=== PATIENT | female | born 1965 | race Caucasian/White ===

== ENCOUNTER 2017-10-07 10:07 | Inpatient (IN) | payer OTHER ==
[2017-10-07] MEDS ORDERED: Dexamethasone IV* 4 MG/ML 1 ML (4 MG) ONE (10:21)
[2017-10-07] MEDS ORDERED: Clindamycin 900 MG IVPREMIX(* 900 MG/50 ML SDV IV ONE (10:22)
[2017-10-07] MEDS ORDERED: Scopolamine 1.5 mg* PATCH ONE (10:22)
[2017-10-07] MEDS ORDERED: Bupivacaine 0.25% SDV* 30 ML ONE (10:47)
[2017-10-07] MEDS ORDERED: Midazolam* 1 MG/ML 5 ML VIAL (5 MG) ONE (10:47)
[2017-10-07] MEDS ORDERED: Methylene Blue 0.5 %* 50 MG/10 ML AMP IV ONE (10:52)
[2017-10-07] MEDS ORDERED: EPINEPHRINE 1 MG/ML 1 ML VIAL ONE (10:52)
[2017-10-07] MEDS ORDERED: Lidocaine 2% PF * 5 ML VIAL ONE ×2 (10:52→12:11)
[2017-10-07] MEDS ORDERED: Sodium Bicarbonate 8.4% SYR* 10 ML SYRINGE ONE (10:53)
[2017-10-07] MEDS ORDERED: Lidocaine 2% PF* 10 ML AMP ONE (10:53)
[2017-10-07] MEDS ORDERED: Ondansetron SYRINGE* 4 MG/2 ML SYRINGE (from 40mg/20ml vial) IV ONE (11:00)
[2017-10-07] MEDS: Buffered Lidocaine 0.9% SYRIN* 5 ML/SYR SYRINGE INTRADERM ONE ×2 (11:01→22:46)
[2017-10-07] MEDS ORDERED: Cisatracurium* 2 MG/ML MDV 5 ML ONE (11:57)
[2017-10-07] MEDS ORDERED: Propofol* 10 MG/ML 20 ML BTL IV PUSH ONE (12:10)
[2017-10-07] MEDS ORDERED: Dexmedetomidine* 200 MCG/2 ML 2 ML VIAL ONE (12:10)
[2017-10-07] MEDS ORDERED: fentaNYL* 50 MCG/ML 2 ML VIAL (100 MCG VIAL) ONE ×3 (12:11→16:38)
[2017-10-07] MEDS ORDERED: Hetastarch 6% in NS* 500 ML IV ONE (14:32)
[2017-10-07] MEDS ORDERED: Acetaminophen TAB* 325 MG PO PRN ×3 (16:04→16:37)
[2017-10-07] MEDS ORDERED: Ondansetron ODT TAB* 4 MG PO PRN (16:04)
[2017-10-07] MEDS ORDERED: Naloxone* 0.4 MG/ML 1 ML VIAL IV PRN (16:04)
[2017-10-07] MEDS ORDERED: PROCHLORPERAZINE INJ 5 MG/ML 2 ML VIAL IV PRN (16:04)
[2017-10-07] MEDS ORDERED: DiMENhydriNATE IV* 50 MG/ML VIAL IV PUSH PRN (16:04)
[2017-10-07] MEDS ORDERED: Magnesium Hydroxide LIQ* 30 ML UDC PO PRN (16:37)
[2017-10-07] MEDS ORDERED: Ondansetron INJ* 2 MG/ML VIAL IV PRN ×2 (16:37)
[2017-10-07] MEDS ORDERED: diPHENhydraMINE PO* 25 MG PO PRN ×2 (16:37)
[2017-10-07] MEDS ORDERED: Al Hydrox/Mg Hydrox/Simet LIQ* 30 ML UDC PO PRN (16:37)
[2017-10-07] MEDS: fentaNYL* 50 MCG/ML 2 ML VIAL (100 MCG VIAL) IV PRN ×2 (16:39→16:44)
[2017-10-07] MEDS ORDERED: HYDROmorphone INJ* 2 MG/ML CARPUJECT SYRINGE ONE ×2 (17:08→21:28)
[2017-10-07] MEDS: HYDROmorphone INJ* 1 MG/ML CARPUJECT SYRINGE IV PRN ×5 (17:14→17:49)
[2017-10-07] MEDS: Artificial Tear OPHTH.OINT* 3.5 GM RIGHT EYE PRN ×2 (18:25→23:14)
[2017-10-07] MEDS: HYDROmorphone INJ* 2 MG/ML CARPUJECT SYRINGE IV PRN ×2 (20:00→21:30)
[2017-10-07] MEDS ORDERED: Artificial Tears* 15 ML BTL RIGHT EYE PRN (21:49)
[2017-10-07] MEDS: Docusate CAP* 100 MG PO SCH (22:12)
[2017-10-07] MEDS: NS 0.9% 1000 ML* 1,000 ML IV SCH (22:27)
[2017-10-08 00:10] LABS: ABS Basophils 0 10^3/ul (0-0.2); ABS Eosinophils 0 10^3/ul (0-0.6); ABS Lymphocytes 0.7 10^3/ul (1.0-4.8); ABS Monocytes 0.6 10^3/ul (0-0.8); ABS Neutrophils 11.5 10^3/ul (1.5-7.7); ABS Nucleated RBC 0 10^3/ul; Eosinophil % 0 % (0-6); Hematocrit 30 % (35-47); Hemoglobin 9.5 g/dl (12.0-16.0); Lymphocyte % 5.2 % (25-47); Mean Corpuscular HGB Conc 32 g/dl (31-36); Mean Corpuscular Hemoglobin 25 pg (27-31); Mean Corpuscular Volume 78 fL (80-97); Mean Platelet Volume 8.4 um3 (7.4-10.4); Nucleated Red Blood Cells % 0; Platelet Count 210 10^3/ul (150-450); Red Blood Count 3.81 10^6/ul (4.0-5.4); Red Cell Distribution Width 23 % (10.5-15); White Blood Count 12.8 10^3/ul (3.5-10.8)
[2017-10-08] MEDS ORDERED: NS 0.9% 500 ML* 500 ML IV ONE ×4 (01:00→10:00)
[2017-10-08] MEDS ORDERED: NS 0.9% 1000 ML* 1,000 ML IV SCH (02:15)
[2017-10-08] MEDS: HYDROmorphone INJ* 2 MG/ML CARPUJECT SYRINGE IV PRN ×6 (02:40→22:38)
--- NOTE | 2017-10-08 03:43 | CONSULT ---
Consult Consult: PCP: Plastic Surgeon: Nolberto Odonnell MD Date/Time: 10/08/2017 Reason for Consult: post-op hypotension HPI: Mrs Ospnia is a 51YO female HX morbid obesity s/p Ruen-Y 2011 w/ good result initially weighing ~350# and now down to ~160#. She underwent a panniculectomy earlier today with a post-operative blood pressure drop of a systolic into the 70s sluggishly responsive to IVFs. She reports what would be considered normal post-operative pain, denies chest pain, SOB, palpitations, N/V , or other issues. Intra-operative blood loss was estimated verbally as 200cc and combined BELLA output is recorded at 600cc and appears to be >50% blood based on lack of translucence & viscosity. She does report light-headedness. A CT abd/pel WO was obtained revealing a large abdominal hematoma extending into B flanks. Dr Odonnell was apprised of the finding and is planning a return to the OR tonight for hemostasis & evacuation. PMedHx HX morbid obesity s/p Ruen-Y 2011 w/ good result HX DM2 in remission since Ruen-Y HX HTN in remission since Ruen-Y esophageal stricture complicating Ruen-Y Ambulatory Orders Cyanocobalamin (Vitamin B-12) [Vitamin B-12] 1,000 mcg SL QAM 09/30/17 Ferrous Sulfate [Iron] 325 mg PO TID 09/30/17 Multivit with Calcium,Iron,Min [Multiple Vitamins For Women] 1 each PO QAM 09/30 Allergies Adhesive Tape Allergy (Severe, Verified 09/30/17 13:08) Hives morphine Allergy (Severe, Verified 10/08/17 01:42) Nausea And Vomiting Penicillins Allergy (Severe, Verified 10/08/17 01:42) Hives/Diff.Breathing/Itching PSurgHx panniculectomy POD zero Ruen-Y cholecystectomy section SocHx: former smoker quit ~25 years ago, ~2 alcoholic drinks weekly, denies recreational drugs; lives with her fiance; 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; full code status FamHx: denies ROS: as above, otherwise reviewed and all were negative vitals: Vital Signs Temp 36.4 C 10/07/17 23:03 Pulse 61 10/08/17 02:00 Resp 26 10/08/17 03:20 BP 85/51 10/08/17 02:00 Pulse Ox 100 10/08/17 02:00 Intake & Output 10/07/17 10/07/17 10/08/17 11:59 23:59 11:59 Intake Total 2500 1229 Output Total 1163 110 Balance 1337 1119 Weight 77.564 kg Intake: IV Fluids 2500 1229 0.9 % NS 1000 Hetastarch 500 LR 1000 NS (0.9%) 1229 Output: BELLA #1 268 45 BELLA #2 295 65 Urine 600 Constitutional: NAD, normally developed, overweight white female HEENM: atraumatic; sclera/conjunctiva: anicteric/clear; hearing: clinically intact; oropharynx: clear, mucosa tacky Neck: soft tissue: non-tender; thyroid: normal Pulmonary: clear to auscultation bilaterally, good aeration, no accessory muscle use CV: RR/RR, normal S1S2, no carotid bruit, no jugular venous distention, 2+ B DP/ PT, no edema Abdominal: soft, non-distended, moderate diffuse tenderness as expected post-op of her surgery, wound vac in place, no flocculence noted, no bleeding from the incision site, BLQ BELLA draining viscous opaque red (one contains a small clot), no rebound/guarding/rigidity, normoactive bowel sounds, no hepatosplenomegaly or masses, no costovertebral angle tenderness Musculoskeletal: general: grossly intact, non-tender Integumental: abdominal incision as above Psychiatric orientation: AA&O to PPS affect: calm mood: cooperative/pleasant eye contact: fair content: reliable responses: timely insight: good Testing: Laboratory Results - last 24 hr 10/07/17 10/07/17 10/08/17 23:45 23:45 03:30 WBC 12.8 H 8.2 RBC 3.81 L 2.48 L Hgb 9.5 L 6.3 L* Hct 30 L 20 L MCV 78 L 80 MCH 25 L 25 L MCHC 32 32 RDW 23 H 23 H Plt Count 210 135 L MPV 8.4 8.6 Neut % (Auto) 89.8 H 87.0 H Lymph % (Auto) 5.2 L 6.2 L Walker % (Auto) 4.9 6.7 Eos % (Auto) 0 0 Baso % (Auto) 0.1 0.1 Absolute Neuts (auto) 11.5 H 7.1 Absolute Lymphs (auto) 0.7 L 0.5 L Absolute Monos (auto) 0.6 0.5 Absolute Eos (auto) 0 0 Absolute Basos (auto) 0 0 Absolute Nucleated RBC 0 0 Nucleated RBC % 0 0.1 Anisocytosis 2+ Blood Type A Positive Antibody Screen Negative Crossmatch See Detail CT abd/pel WO, personally reviewed: IMPRESSION: 12.3cm subcutaneous anterior abdominal wall hematoma and 12.0cm left flank subcutaneous hematoma. Acute extravasation is difficult to exclude without contrast. Impression: 51F POD zero panniculectomy complicated by post-operative subcutaneous hemorrhage, blood loss anemia DIAGNOSIS & PLAN Primary POD zero panniculectomy : pain control : management per Nolberto Odonnell MD plastic surgery post-operative hemorrhage w/ acute blood loss anemia : ICU transfer : type & screen : transfuse 2 units pRBCs : trend H&H : thank you for this interesting consultation, we will continue to follow & assist Secondary HX DM2 & HTN : in remission since Ruen-Y Critical Care Time: 110minutes; with >50% spent face to face interviewing, evaluating, informing, & discussing treatment options
[2017-10-08 03:53] LABS: Hematocrit 20 % (35-47); Hemoglobin 6.3 g/dl (12.0-16.0); Mean Corpuscular HGB Conc 32 g/dl (31-36); Mean Corpuscular Hemoglobin 25 pg (27-31); Mean Corpuscular Volume 80 fL (80-97); Mean Platelet Volume 8.6 um3 (7.4-10.4); Platelet Count 135 10^3/ul (150-450); Red Blood Count 2.48 10^6/ul (4.0-5.4); Red Cell Distribution Width 23 % (10.5-15); White Blood Count 8.2 10^3/ul (3.5-10.8)
[2017-10-08] MEDS ORDERED: Etomidate* 2 MG/ML 10 ML VIAL ONE (04:24)
[2017-10-08] MEDS ORDERED: Atracurium* 10 MG/ML 10 ML VIAL ONE (04:24)
[2017-10-08] MEDS ORDERED: Midazolam* 1 MG/ML 2 ML VIAL (2 MG) ONE (04:25)
[2017-10-08 04:30] LABS: ABS Basophils 0 10^3/ul (0-0.2); ABS Eosinophils 0 10^3/ul (0-0.6); ABS Lymphocytes 0.5 10^3/ul (1.0-4.8); ABS Monocytes 0.5 10^3/ul (0-0.8); ABS Neutrophils 7.1 10^3/ul (1.5-7.7); ABS Nucleated RBC 0 10^3/ul; Eosinophil % 0 % (0-6); Lymphocyte % 6.2 % (25-47); Nucleated Red Blood Cells % 0.1
[2017-10-08] MEDS ORDERED: fentaNYL* 50 MCG/ML 2 ML VIAL (100 MCG VIAL) ONE ×2 (04:52→07:11)
[2017-10-08] MEDS ORDERED: Clindamycin 900 MG IVPREMIX(* 900 MG/50 ML SDV IV ONE (05:14)
[2017-10-08] MEDS ORDERED: Phenylephrine INJ* 10 MG/ML 1 ML VIAL (10 MG) ONE (05:37)
[2017-10-08] MEDS ORDERED: Succinylcholine* 20 MG/ML 10 ML VIAL ONE (06:13)
[2017-10-08] MEDS ORDERED: Naloxone* 0.4 MG/ML 1 ML VIAL IV PRN (06:52)
[2017-10-08] MEDS ORDERED: Ondansetron INJ* 2 MG/ML VIAL IV PRN (06:52)
[2017-10-08] MEDS ORDERED: DiMENhydriNATE IV* 50 MG/ML VIAL IV PUSH PRN (06:52)
[2017-10-08] MEDS ORDERED: Ondansetron ODT TAB* 4 MG PO PRN (06:52)
[2017-10-08] MEDS ORDERED: HYDROmorphone INJ* 2 MG/ML CARPUJECT SYRINGE ONE (07:11)
[2017-10-08] MEDS: fentaNYL* 50 MCG/ML 2 ML VIAL (100 MCG VIAL) IV PRN ×3 (07:12→07:35)
[2017-10-08] MEDS: HYDROmorphone INJ* 1 MG/ML CARPUJECT SYRINGE IV PRN ×3 (07:13→07:36)
[2017-10-08 07:55] LABS: Hematocrit 30 % (35-47); Hemoglobin 9.6 g/dl (12.0-16.0)
[2017-10-08] MEDS: NS 0.9% 1000 ML* 1,000 ML IV SCH (08:05)
--- NOTE | 2017-10-08 08:24 | RAD ---
Indication: Postoperative hypotension CT of the abdomen and pelvis was performed without oral or IV contrast administration. Coronal and sagittal reconstructed images were obtained. Lung bases demonstrate bibasilar atelectasis. Heart demonstrates no pericardial effusion. Liver is normal in size. No focal lesions or intrahepatic ductal dilatation is noted. Spleen is normal in size. Patient is status post bariatric surgery. Pancreas demonstrates no mass or pancreatic ductal dilatation. Patient status post cholecystectomy. No adrenal masses are noted. The kidneys demonstrates no hydronephrosis. No retroperitoneal lymphadenopathy is noted. The uterus and ovaries are unremarkable. CT of the pelvis demonstrates uterus and ovaries to be unremarkable. Air is noted in the urinary bladder likely from recent instrumentation. There is subcutaneous edema involving the anterior abdominal wall. There is hematoma in the anterior abdominal wall measuring approximately 7 cm in length x 14 cm in width x 3.4 cm in AP dimension. Edema extends into the lateral soft tissues bilaterally. Just lateral to the rectus muscle on the left is an additional hematoma measuring 5.1 x 1.8 cm. In the left lateral pelvis there is additional hematoma measuring 12 x 2.6 x 7.7 cm. No extension into the intra-abdominal space is noted. IMPRESSION: Hematoma in the anterior abdominal wall where drainage catheter is in place measuring 7 x 14 x 3.4 cm as well as in the left lateral pelvis measuring 12 x 2.6 x 7.7 cm. Drainage catheters are in place.
[2017-10-08] MEDS: Docusate CAP* 100 MG PO SCH ×2 (11:17→21:28)
--- NOTE | 2017-10-08 11:51 | PN ---
Progress Note - Progress Note Date of Service: 10/08/17 Note: CRITICAL CARE MEDICINE Date: 10/08/17 Time: 930 SUBJECTIVE: Patient seen and examined. at bedside. PHYSICAL EXAM: Vital Signs: Reviewed. SBP >70, HR ~80; RR 12, RA, afeb Neurologic: awake, communicating HEENT: pupils equal. Sclera anicteric. Trachea midline. Cardiovascular: S1 S2, reg Respiratory: ctab Abdomen: Soft, nt. large vac dressing with right diane mainly serous; left diane with a touch thicker consistency Extremities: cool, pale. Access: piv hurting her LABS: Reviewed. IMAGING: Reviewed. MEDICATIONS: Reviewed. ASSESSMENT/PLAN: 51 F S/p panniculectomy with post-op hematoma and blood loss anemia/hemorrhagic shock (although perfusion maintained throughout it seems) but requiring return to OR during night for hematoma evacuation and hemostasis without clear culpruit and no signs of further bleeding. Original EBL 200ml, and clot with 400mls, with intraop 2unit prbcs transfusion and now receiving 2 more this am. Bp remains on low end, but HR stable and maintaining perfusion. D/w Dr. Odonnell, and we agree pt not yet equilibrated from blood loss anemia and will be receiving 2 units prbcs this am. Original Hb on 09/30 was 12k and soren yesetrday was 6.3, however yet to equilibrate from all her Ebb and flow dynamics and agree she was probably hemoconcentrated on am draw today. Likely to still have considerable surface area with potential for slow bleeding but all should stabilize with medical therapy as it seems there is not amendable surgical culprit. Will need to check coags and for off chance of hemolytic process. She assures me, no asa, nsaid, anticoag, herbal supplements, etc at home nor any other bleeding issues. Has been on steroids in past but none recently. She is perfusing. Vol status being met and will re-eval post fluids and transfusions this am. Resp status fine. f/u coags and labs. Again, doubt we should need any further OR needs. po diet as tolerating. pain control. Piv painful and will place midline for access and lab needs. Will have received 4 units prbcs and may just need to self equilibrate beyond that eventhough Hb will be much lower then baseline but hopefully can avoid further needs in order not to dilute; but if needed beyond that would consider potential factor needs, but again not anticipating. Could have some relative adrenal insufficiency, but would rather check random cortisol and hopefully avoid empiric steroids. Don't see any infective ailment but will need to observe for such. Dressing and surgical care f/u. D/w Pt and and they expressed understanding. D/w Dr. Odonnell Supportive and preventative care as ordered. Disposition: ICU today. Code Status: Full Critical Care Time: 45min FIsabell Steiner DO
[2017-10-08] MEDS: Hydrocodone/Acetamin 10/325 1 TAB PO PRN (12:20)
[2017-10-08 12:50] LABS: Hematocrit 31 % (35-47); Hemoglobin 9.9 g/dl (12.0-16.0); Mean Corpuscular HGB Conc 33 g/dl (31-36); Mean Corpuscular Hemoglobin 26 pg (27-31); Mean Corpuscular Volume 80 fL (80-97); Platelet Count 154 10^3/ul (150-450); Red Blood Count 3.83 10^6/ul (4.0-5.4); Red Cell Distribution Width 21 % (10.5-15); White Blood Count 7.6 10^3/ul (3.5-10.8)
[2017-10-08 13:32] LABS: EGFR Non-African American 114.1 (>60)
[2017-10-08 13:46] LABS: INR 1.06 (0.77-1.02)
--- NOTE | 2017-10-08 14:10 | PN ---
Progress Note - Progress Note Date of Service: 10/08/17 Note: CRITICAL CARE MEDICINE Date: 10/08/17 Time: 1400 feeling a little better and improving. Hb stablizing. no signs of bleeding or coagulopathy. check Hb in am. bp still soft. random cortisol undetectable. would treat with short course stress dose steroids and allow her time to equilibrate. Fluids adjusted. advance diet. Disposition: ICU today, hopefully floor tomorrow prior to disposition from there. Code Status: Full Critical Care Time: 10min Janeth Steiner DO
[2017-10-08] MEDS: Hydrocortisone INJ* 100 MG VIAL IV SCH ×2 (14:38→21:28)
--- NOTE | 2017-10-09 01:42 | OP ---
DATE OF OPERATION: 10/08/17 - ROOM #[id number] DATE OF : 65 SURGEON: Dr. Odonnell. ANESTHESIOLOGIST: Dr. Bates. ANESTHESIA: General endotracheal. PRE-OP DIAGNOSIS: Abdominal wall hematoma. POST-OP DIAGNOSIS: Abdominal wall hematoma. OPERATIVE PROCEDURE: Exploration and drainage of hematoma, abdominal wall. ESTIMATED BLOOD LOSS: 400 cc of clotted hematoma, no active bleeding. SPECIMENS: None. DRAINS: 2 Jean-Champion. FLUIDS: 400 cc of IV crystalloid and 2 units of packed red blood cells. INDICATIONS FOR OPERATION: The patient is a 51-year-old woman who underwent panniculectomy, abdominoplasty on 10/07/17. Late last night, the patient developed persistent hypotension, excessive Jean-Champion drainage, and progressive postoperative anemia. Abdominal CT scan was consistent with a hematoma in the lower abdominal wall and flank. DESCRIPTION OF PROCEDURE: The patient was brought to the operating room and placed in the supine position. General anesthesia was induced by Dr. Bates and an endotracheal tube placed. The abdomen was prepped with Betadine solution and draped sterilely. The central portion of the long transverse lower abdominal incision was opened by removing the subcuticular and subcutaneous fascial sutures. A large lower abdominal subcutaneous hematoma was noted and drained. The hematoma tracked laterally into the bilateral flank areas as well. A total of approximately 400 cc of clotted dark hematoma was drained. No active bleeding was found. The abdominal midline fascial repair was noted to be intact. The skin flaps and umbilicus appeared pink and viable. The wound was irrigated with copious saline solution. Hemostasis was noted to be good. The wound was closed using 2-0 Vicryl in the subcutaneous fascia. Deep dermal closure with interrupted 3-0 Vicryl was done and then the skin closed with running subcuticular 3-0 Monocryl. Several interrupted sutures of 5-0 Vicryl Rapide were also placed in the skin. Two large, flat 10-mm Jean Champion drains were left in place. A new VAC Prevena dressing was then applied and a good seal verified on the dressing. The patient tolerated the procedure well. There were no complications. All counts were reported as corrected at the end of the procedure. The patient was taken to the recovery area in stable postoperative condition. [id number]/[facility] #: [id number] [facility]
[2017-10-09] MEDS: HYDROmorphone INJ* 2 MG/ML CARPUJECT SYRINGE IV PRN ×5 (01:46→22:34)
[2017-10-09] MEDS: Hydrocortisone INJ* 100 MG VIAL IV SCH ×2 (03:31→09:21)
[2017-10-09 06:31] LABS: ABS Basophils 0 10^3/ul (0-0.2); ABS Eosinophils 0 10^3/ul (0-0.6); ABS Lymphocytes 0.6 10^3/ul (1.0-4.8); ABS Monocytes 0.3 10^3/ul (0-0.8); ABS Neutrophils 4.7 10^3/ul (1.5-7.7); ABS Nucleated RBC 0 10^3/ul; Eosinophil % 0.1 % (0-6); Hematocrit 33 % (35-47); Hemoglobin 10.9 g/dl (12.0-16.0); Lymphocyte % 11.2 % (25-47); Mean Corpuscular HGB Conc 33 g/dl (31-36); Mean Corpuscular Hemoglobin 27 pg (27-31); Mean Corpuscular Volume 81 fL (80-97); Nucleated Red Blood Cells % 0.1; Platelet Count 130 10^3/ul (150-450); Red Blood Count 4.05 10^6/ul (4.0-5.4); Red Cell Distribution Width 22 % (10.5-15); White Blood Count 5.7 10^3/ul (3.5-10.8)
[2017-10-09 06:47] LABS: EGFR Non-African American 121.6 (>60)
--- NOTE | 2017-10-09 10:48 | PN ---
Progress Note - Progress Note Date of Service: 10/09/17 Note: CRITICAL CARE MEDICINE Date: 10/09/17 Time: 905 SUBJECTIVE: Patient seen and examined. to be at bedside. PHYSICAL EXAM: Vital Signs: Reviewed. stable Neurologic: communicating fine HEENT: pupils equal. Sclera anicteric. Trachea midline. Cardiovascular: S1 S2, reg Respiratory: ctab Abdomen: Soft, nt. mild inc overall fluid retention but otherwise no focal changes. large vac dressing intact with more serous consistent jps Extremities: warm, no le edema Access: midline LABS: Reviewed. IMAGING: Reviewed. MEDICATIONS: Reviewed. ASSESSMENT/PLAN: 51 F S/p panniculectomy with post-op hematoma and acute blood loss anemia - stable hemodynamics and counts. no bleeding just needed time to catch up Relative adrenal insufficiency - bp improved with steroids and likely repleted but give just these 2 days of prednisone to enure adequacy. d/w pt and she expressed understanding. oob. dc ivf. po. po rx. dc dal[place]. ambulate. to surgical and hopefully home tomorrow D/w Pt and 2B and they expressed understanding. Supportive and preventative care as ordered. Disposition: surgical Code Status: Full Critical Care Time: 25min Janeth Steiner DO
[2017-10-09] MEDS: HYDROcodone/ACET. 7.5/325 LIQ* 15 ML UDC PO PRN ×3 (11:56→22:18)
[2017-10-09] MEDS: predniSONE TAB* 20 MG PO SCH (14:07)
[2017-10-09] MEDS: Docusate CAP* 100 MG PO SCH ×3 (14:07→22:20)
[2017-10-09 15:38] LABS: ABS Basophils 0 10^3/ul (0-0.2); ABS Eosinophils 0 10^3/ul (0-0.6); ABS Monocytes 0.5 10^3/ul (0-0.8); ABS Neutrophils 5.7 10^3/ul (1.5-7.7); ABS Nucleated RBC 0 10^3/ul; Eosinophil % 0.1 % (0-6); Hematocrit 33 % (35-47); Lymphocyte % 13.4 % (25-47); Mean Corpuscular HGB Conc 33 g/dl (31-36); Mean Corpuscular Hemoglobin 27 pg (27-31); Mean Corpuscular Volume 80 fL (80-97); Mean Platelet Volume 8.8 um3 (7.4-10.4); Nucleated Red Blood Cells % 0; Platelet Count 156 10^3/ul (150-450); Red Blood Count 4.12 10^6/ul (4.0-5.4); Red Cell Distribution Width 22 % (10.5-15); White Blood Count 7.2 10^3/ul (3.5-10.8)
[2017-10-09] MEDS: Hydrocodone/Acetamin 10/325 1 TAB PO PRN (18:11)
[2017-10-10 00:56] LABS: ABS Basophils 0.1 10^3/ul (0-0.2); ABS Eosinophils 0 10^3/ul (0-0.6); ABS Lymphocytes 1.7 10^3/ul (1.0-4.8); ABS Neutrophils 7.2 10^3/ul (1.5-7.7); ABS Nucleated RBC 0 10^3/ul; Eosinophil % 0.4 % (0-6); Hematocrit 35 % (35-47); Hemoglobin 11.7 g/dl (12.0-16.0); Lymphocyte % 16.8 % (25-47); Mean Corpuscular HGB Conc 33 g/dl (31-36); Mean Corpuscular Hemoglobin 27 pg (27-31); Mean Corpuscular Volume 80 fL (80-97); Nucleated Red Blood Cells % 0.1; Platelet Count 148 10^3/ul (150-450); Red Blood Count 4.38 10^6/ul (4.0-5.4); Red Cell Distribution Width 22 % (10.5-15)
[2017-10-10] MEDS: HYDROcodone/ACET. 7.5/325 LIQ* 15 ML UDC PO PRN ×2 (04:48→09:47)
[2017-10-10] MEDS: HYDROmorphone INJ* 2 MG/ML CARPUJECT SYRINGE IV PRN (04:49)
[2017-10-10] MEDS ORDERED: Bacitracin OINTMENT* 0.5% 0.5 oz TUBE TOPICAL ONE (08:30)
[2017-10-10 08:44] VITALS: BP 108/61
[2017-10-10] MEDS: predniSONE TAB* 20 MG PO SCH (09:48)
[2017-10-10] MEDS: Docusate CAP* 100 MG PO SCH (09:48)
--- NOTE | 2017-10-10 10:29 | OP ---
OPERATIVE REPORT: DATE OF OPERATION: 10/08/17 DATE OF : 65 SURGEON: Mayank Odonnell MD FLUIDS: In the original operative note, it says 400 cc of IV crystalloid and 2 units of packed red b lood cells. The correction should be 4000 cc of IV crystalloid and 2 units of packed red blood cells . [id number]/[facility] #: [id number]
[2017-10-10] MEDS ORDERED: Scopolamine PATCH Remove* 1 NOTE MISC PATCH OFF ONE (16:06)
--- NOTE | 2017-10-11 07:41 | DS ---
AMENDED REPORT NOW INCLUDES COSIGNER DESIGNATION - ESIGNED BEFORE ADJUSTMENT CC: Mayank Odonnell MD * DISCHARGE SUMMARY: DATE OF ADMISSION: 10/07/17 DATE OF DISCHARGE: 10/10/17 PATIENT OF: Mayank Odonnell MD ADMITTING PHYSICIAN: Dr. Trace Ruiz. ATTENDING HOSPITALIST: Dr. Jose Holland.* (DICTATED BY SINGH CUENCA) SURGEON: Dr. Mayank Odonnell. ADMISSION DIAGNOSES: 1. History of morbid obesity. 2. Status post panniculectomy and abdominoplasty. 3. Postoperative hemorrhage and hematoma. 4. Hypotension and acute blood loss. 5. Anemia of blood loss. DISCHARGE DIAGNOSES: 1. History of morbid obesity. 2. Status post panniculectomy and abdominoplasty. 3. Postoperative hemorrhage and hematoma. 4. Hypotension and acute blood loss. 5. Anemia of blood loss. CONSULTATIONS: None. PROCEDURES: 1. Panniculectomy and abdominoplasty on 10/07/17. 2. Exploration and drainage of abdominal wall hematoma with 400 cc of clotted hematoma evacuated on 10/08/17. BRIEF MEDICAL HISTORY: Ms. Ospina is a pleasant 51-year-old female with a history of morbid obesity for which he had Inessa-en-Y gastric bypass back in 2011 with good results. She initially weighed 350 pounds and now she is down to 160. Given her significant weight loss, she had excess abdominal wall skin and panniculus for which she was seen by Dr. Odonenll to discuss surgery. The patient was found to be a good candidate and underwent a panniculectomy earlier on 10/07/17. During her postoperative period, she was noted to have drop in her blood pressure with the systolics being in the 70s with a sluggish response to IV fluids. She had normal postoperative pain. Denied any chest pain or palpitations. Her intraoperative blood loss was estimated as 200 cc; however, she had a combined drain output as high as 600 cc in the immediate postoperative period. The patient does report lightheadedness and had a CT scan of the abdomen and pelvis, revealed a large abdominal hematoma extending to the bilateral flanks. Given the findings of the large hematoma, the patient was taken back to the operating room on the following day and had evacuation of abdominal wall hematoma, ligation of bleeders and hemostasis as well as drain placement. After her second procedure, the patient was transferred to the intensive care unit for observation overnight. A serial check of her hemoglobin and hematocrit was done and the patient was transfused a total of 4 units of packed red blood cells over the following 36 hours. She continued to be closely monitored in the ICU and had systolic blood pressure that was greater than 70. She was perfusing well. Her pain was well under control. She had a serial check of her H and H every 12 hours that revealed stable values. The patient should no excessive output from her BELLA drains. She continued to do well and her vitals were monitored with stable blood pressure and no evidence of tachycardia. She was started on liquid diet that was advanced to regular and eventually the patient was discharged from ICU to the surgical stay unit where she stayed another night for observation. On the discharge morning, the patient was seen by Dr. Odonnell to discuss discharge instructions. She had placement of outpatient wound VAC to help enhance wound healing. All the instructions for the wound VAC as well as drain education was given to the patient prior to discharge. She will follow up with Dr. Odonnell in his office this coming Friday for dressing changes and possible drain removal. At the time of discharge, the patient was examined and seen at bedside. She denied any chest pain, shortness of breath, weakness or dizziness. She has been ambulatory out of the bed and walking down the torres several times. Her heart was regular rate and rhythm with no rubs, murmurs or gallops. Her lungs were clear to auscultation bilaterally. She will be discharged to home and will be followed up by Dr. Odonnell on Friday as scheduled. DISCHARGE MEDICATIONS: Her discharge medications include: 1. Vitamin B12 1000 mcg sublingual q.a.m. 2. Iron supplements 325 mg p.o. t.i.d. 3. Multivitamins with calcium 1 tablet p.o. q.a.m. 4. Lortab Elixir as needed for pain and as prescribed by Dr. Odonnell. SINGH CUENCA [id number]/[facility] #: [id number] [facility]
== END 2017-10-10 10:30 | disposition home or self-care (01) | DRG 571 ==
LOC: AA 10:07 → SSU 21:28 → ICU 10-08 02:30 → SSU 10-09 12:45
PROVIDERS: ADMIT Plastic Surgery; ATTEND Plastic Surgery
PROC: 0JB80ZZ Excision of Abdomen Subcutaneous Tissue and Fascia, Open Approach (ICD-10-PCS; 2017-10-07)
PROC: 30233N1 Transfusion of Nonautologous Red Blood Cells into Peripheral Vein, Percutaneous Approach (ICD-10-PCS; principal; 2017-10-07 11:15)
PROC: 0W9F0ZZ Drainage of Abdominal Wall, Open Approach (ICD-10-PCS; 2017-10-08)
DX: L98.7 Excessive and redundant skin and subcutaneous tissue (principal); D62 Acute posthemorrhagic anemia; L76.32 Postprocedural hematoma of skin and subcutaneous tissue following other procedure; I10 Essential (primary) hypertension; E11.9 Type 2 diabetes mellitus without complications; E78.00 Pure hypercholesterolemia, unspecified; K22.2 Esophageal obstruction; D50.9 Iron deficiency anemia, unspecified; I95.81 Postprocedural hypotension; E66.3 Overweight; Y83.8 Other surgical procedures as the cause of abnormal reaction of the patient, or of later complication, without mention of misadventure at the time of the procedure; Y92.234 Operating room of hospital as the place of occurrence of the external cause; Z98.84 Bariatric surgery status; Z90.49 Acquired absence of other specified parts of digestive tract; Z88.0 Allergy status to penicillin; Z88.5 Allergy status to narcotic agent; Z91.048 Other nonmedicinal substance allergy status; Z87.891 Personal history of nicotine dependence; Z82.49 Family history of ischemic heart disease and other diseases of the circulatory system; Z81.8 Family history of other mental and behavioral disorders; Z83.49 Family history of other endocrine, nutritional and metabolic diseases; Z80.3 Family history of malignant neoplasm of breast; Z68.33 Body mass index [BMI] 33.0-33.9, adult
CPT/HCPCS: 36415; 74176; 80048; 82533; 83010; 83036; 85014; 85018; 85025; 85027; 85060; 85384; 85610; 85730; 86850; 86900; 86901; 86922; 87641; 88300; A9270-GY; J0330; J1100; J1170; J1720; J2001; J2250; J2405; J2704; J3010; J7512; P9040

== ENCOUNTER → 2019-03-23 08:22 | Day surgery (SDC) | payer OTHER ==
[~2019-03-23 08:22] MED LIST: Acetaminophen TAB* 325 MG ONE; Acetaminophen TAB* 325 MG PO ONE; Buffered Lidocaine 1% SYRIN* 1 ML/SYRINGE INTRADERM ONE; Bupivacaine 0.25% SDV PF* 10 ML VIAL INJ ONE; Clindamycin 900 MG/D5W BAG(*) 900 MG/50 ML BAG IVPB ONE; Dexamethasone IV* 4 MG/ML 1 ML (4 MG) ONE; Famotidine IV* 10 MG/ML 2 ML (20 mg) IV ONE; Famotidine IV* 10 MG/ML 2 ML (20 mg) ONE; Gabapentin CAP(*) 400 MG PO ONE; HYDROcodone/ACETAMIN 5-325 MG* 1 TAB PO PRN; Lactated Ringers 1000 ML Bag* 1,000 ML IV SCH; Lidocaine 1% w EPI 1:100,000* MDV 20 ML VIAL ONE; Lidocaine 2% PF * 5 ML VIAL ONE; Midazolam* 1 MG/ML 5 ML VIAL (5 MG) ONE; Naloxone* 0.4 MG/ML 1 ML VIAL IV PRN; Ondansetron INJ* 2 MG/ML VIAL ONE; Propofol* 10 MG/ML 20 ML BTL ONE; Scopolamine 1.5 mg* PATCH ONE; fentaNYL* 50 MCG/ML 2 ML VIAL (100 MCG VIAL) ONE; oxyCODONE/Acetamin 5/325 MG* TAB ONE; oxyCODONE/Acetamin 5/325 MG* TAB PO PRN
[2019-03-23] MEDS: fentaNYL* 50 MCG/ML 2 ML VIAL (100 MCG VIAL) IV PRN ×4 (13:50→14:36)
[2019-03-23 17:15] VITALS: BP 104/62
== END | disposition home or self-care (01) ==
LOC: OR 08:22
PROVIDERS: ATTEND Plastic Surgery
DX: N62 Hypertrophy of breast (principal); G89.29 Other chronic pain; M54.2 Cervicalgia; M54.6 Pain in thoracic spine; M25.511 Pain in right shoulder; M25.512 Pain in left shoulder; Z80.3 Family history of malignant neoplasm of breast; Z98.84 Bariatric surgery status
CPT/HCPCS: 81025; 88305; A9270-GY; A9272-GY; J1100; J2250; J2405; J2704; J3010; J3490